=== PATIENT | female | born 1995 | race Hispanic/Latino ===

== ENCOUNTER 2017-11-22 10:40 | Emergency (ER) | payer OTHER ==
--- NOTE | 2017-11-22 11:34 | RAD ---
LEFT SHOULDER THREE VIEWS: History: Shoulder pain after accident. FINDINGS: AC and glenohumeral joints appear unremarkable. There are no signs of fracture or dislocation. IMPRESSION: No evidence of fracture. POS: [facility]
== END 2017-11-22 12:00 | disposition home or self-care (01) ==
LOC: ERS 10:40
DX: S43.402A Unspecified sprain of left shoulder joint, initial encounter (principal); V43.52XA Car driver injured in collision with other type car in traffic accident, initial encounter

== ENCOUNTER 2017-12-23 05:42 | Emergency (ER) | payer SELFPAY ==
--- NOTE | 2017-12-23 09:44 | RAD ---
CHEST 2 VIEWS: Date: 12/23/17 HISTORY: Cough. COMPARISON: None. FINDINGS: Mild elevation left hemidiaphragm. No pneumothorax. No effusion. No acute osseous abnormality. IMPRESSION: No acute intrathoracic abnormality. POS: [facility]
== END 2017-12-23 06:54 | disposition home or self-care (01) ==
LOC: ERS 05:42
DX: J02.9 Acute pharyngitis, unspecified (principal)
CPT/HCPCS: 71046; 87081; 87430; 87804